=== PATIENT | male | born 1985 | race Caucasian/White ===

== ENCOUNTER 2019-07-02 06:47 | Emergency (ER) | payer SELFPAY ==
[~2019-07-02] VITALS: Ht 172.7 cm; Wt 109.1 kg
[2019-07-02 06:56] VITALS: BP 148/110; Ht 172.7 cm; Wt 109.1 kg
[2019-07-02] MEDS ORDERED: STERAPRED DS 1010 MG PO (07:40)
[2019-07-02] MEDS ORDERED: NAPROSYN500 MG PO (07:40)
[2019-07-02] MEDS ORDERED: LIBRIUM25 MG PO (07:40)
== END 2019-07-02 08:02 | disposition home or self-care (01) ==
LOC: D.ER 06:47
DX: S39.012A Strain of muscle, fascia and tendon of lower back, initial encounter (principal); F10.239 Alcohol dependence with withdrawal, unspecified; X50.9XXA Other and unspecified overexertion or strenuous movements or postures, initial encounter; Y93.9 Activity, unspecified; Y92.9 Unspecified place or not applicable; I10 Essential (primary) hypertension; Z72.0 Tobacco use

== ENCOUNTER 2019-09-29 00:11 | Emergency (ER) | payer MEDICAID ==
[~2019-09-29] VITALS: Ht 172.7 cm; Wt 109.1 kg
[~2019-09-29 00:11] MED LIST: LIBRIUM25 MG PO; NAPROSYN500 MG PO; STERAPRED DS 1010 MG PO
[2019-09-29 00:18] VITALS: Ht 172.7 cm; Wt 109.1 kg
[2019-09-29 00:31] LABS: BASOPHILS 0.1 % (0-2); EOSINOPHILS 0.1 % (0-7); HEMATOCRIT 49.9 % (42.0-54.0); HEMOGLOBIN 16.9 g/dL (13.5-17.5); IMMATURE GRANULOCYTES 0.4 % (0-5); LYMPHOCYTES 15.7 % (15-50); MCH 32.9 pg (26.0-34.0); MCHC 33.9 g/dL (31.0-37.0); MCV 97.3 fL (80.0-100.0); MEAN PLATELET VOLUME 13.7 fL (7.4-10.4); MONOCYTES 4.4 % (2-11); NEUTROPHILS 79.3 % (40-80); PLATELET COUNT 124 10x3/uL (130-400); RBC 5.13 10x6/uL (4.20-6.10); RDW 14.3 % (11.5-14.5); WBC 8.4 10x3/uL (4.8-10.8)
[2019-09-29 00:37] LABS: PROTIME 13.2 SECONDS (11.6-15.0)
[2019-09-29 00:49] LABS: CALC OSMOLALITY 276 mosm/kg (275-300); CALCIUM 8.4 mg/dL (8.5-10.1); CARBON DIOXIDE 23.9 mmol/L (21.0-32.0); CHLORIDE - SERUM 99 mmol/L (98-107); CREATININE - SERUM 0.9 mg/dL (0.6-1.3); GLUCOSE 153 mg/dL (74-106); POTASSIUM - SERUM 3.5 mmol/L (3.5-5.1); SODIUM 138 mmol/L (136-145); UREA NITROGEN 6 mg/dL (7-18); eGFR NON AFRICAN AMERICAN > 90 mL/min (90-120)
[2019-09-29 00:57] LABS: ALBUMIN 3.7 g/dL (3.4-5.0); ALKALINE PHOSPHATASE 109 U/L (30-120); ALT (SGPT) 143 U/L (10-68); BILIRUBIN - TOTAL 0.51 mg/dL (0.2-1.3); CKMB 3.1 U/L (0.0-3.6); CREATINE KINASE 263 UL (21-232); MAGNESIUM - SERUM 1.9 mg/dL (1.8-2.4); PRO BNP 11 pg/mL (0-125); PROTEIN - SERUM 8.2 g/dL (6.4-8.2); TROPONIN-I < 0.017 ng/mL (0.000-0.060)
[2019-09-29 01:00] LABS: UDS - AMPHET NEGATIVE QUAL (NEGATIVE); UDS - BARB NEGATIVE QUAL (NEGATIVE); UDS - BENZO POSITIVE QUAL (NEGATIVE); UDS - COCAINE NEGATIVE QUAL (NEGATIVE); UDS - OPIATE NEGATIVE QUAL (NEGATIVE); UDS - PCP NEGATIVE QUAL (NEGATIVE); UDS - THC NEGATIVE QUAL (NEGATIVE)
[2019-09-29] MEDS ORDERED: NORVASC10 MG PO (01:31)
[2019-09-29] MEDS ORDERED: LIBRIUM25 MG PO (01:31)
[2019-09-29 02:45] VITALS: BP 137/77
[2019-09-30] MEDS ORDERED: ATIVAN1 MG PO (05:03)
== END 2019-09-29 02:45 | disposition home or self-care (01) ==
LOC: D.ER 00:11
PROVIDERS: Surgery
DX: F10.129 Alcohol abuse with intoxication, unspecified (principal); Y90.8 Blood alcohol level of 240 mg/100 ml or more; F41.9 Anxiety disorder, unspecified; R74.0 Nonspecific elevation of levels of transaminase and lactic acid dehydrogenase [LDH]; I10 Essential (primary) hypertension; Z72.0 Tobacco use; R07.9 Chest pain, unspecified

== ENCOUNTER 2019-09-30 02:33 | Emergency (ER) | payer MEDICAID ==
[~2019-09-30] VITALS: Ht 172.7 cm; Wt 113.7 kg
[~2019-09-30 02:33] MED LIST changes: +NORVASC10 MG PO
[2019-09-30 02:52] VITALS: Ht 172.7 cm; Wt 113.7 kg
[2019-09-30 03:30] LABS: HEMATOCRIT 46.3 % (42.0-54.0); HEMOGLOBIN 15.8 g/dL (13.5-17.5); LYMPHOCYTES 22.4 % (15-50); MCH 33.1 pg (26.0-34.0); MCHC 34.1 g/dL (31.0-37.0); MCV 97.1 fL (80.0-100.0); RBC 4.77 10x6/uL (4.20-6.10); RDW 14.3 % (11.5-14.5)
[2019-09-30 03:31] LABS: PLATELET COUNT 81 10x3/uL (130-400); WBC 6.2 10x3/uL (4.8-10.8)
[2019-09-30 03:32] LABS: CALC OSMOLALITY 270 mosm/kg (275-300); CALCIUM 7.8 mg/dL (8.5-10.1); CARBON DIOXIDE 27.7 mmol/L (21.0-32.0); CHLORIDE - SERUM 97 mmol/L (98-107); CREATININE - SERUM 1.1 mg/dL (0.6-1.3); GLUCOSE 111 mg/dL (74-106); POTASSIUM - SERUM 3.3 mmol/L (3.5-5.1); SODIUM 136 mmol/L (136-145); UREA NITROGEN 6 mg/dL (7-18); eGFR NON AFRICAN AMERICAN 82 mL/min (90-120)
[2019-09-30 03:46] LABS: ALBUMIN 3.3 g/dL (3.4-5.0); ALKALINE PHOSPHATASE 107 U/L (30-120); ALT (SGPT) 206 U/L (10-68); BILIRUBIN - TOTAL 0.97 mg/dL (0.2-1.3); C-REACTIVE PROTEIN < 0.2 mg/dL (0.0-0.9); LIPASE 296 U/L (73-393); PROTEIN - SERUM 7.2 g/dL (6.4-8.2)
[2019-09-30 04:01] LABS: UDS - AMPHET NEGATIVE QUAL (NEGATIVE); UDS - BARB NEGATIVE QUAL (NEGATIVE); UDS - BENZO POSITIVE QUAL (NEGATIVE); UDS - COCAINE NEGATIVE QUAL (NEGATIVE); UDS - OPIATE NEGATIVE QUAL (NEGATIVE); UDS - PCP NEGATIVE QUAL (NEGATIVE); UDS - THC NEGATIVE QUAL (NEGATIVE)
[2019-09-30 04:25] LABS: BILIRUBIN NEGATIVE (NEGATIVE); GLUCOSE NEGATIVE (NEGATIVE); KETONE NEGATIVE (NEGATIVE); NITRITE NEGATIVE (NEGATIVE); SPECIFIC GRAVITY 1.015 (1.005-1.020); UROBILINOGEN NORMAL (NORMAL)
[2019-09-30 04:27] LABS: BACTERIA NONE SEEN /hpf (NEGATIVE); EPITHELIAL CELLS NSEEN /hpf (0-5); RED CELLS - URINE NONE SEEN /hpf (0-5); WHITE CELLS - URINE 0-5 /hpf (NEGATIVE)
[2019-09-30] MEDS ORDERED: ATIVAN1 MG PO (05:03)
[2019-09-30 05:35] VITALS: BP 135/88
== END 2019-09-30 05:36 | disposition home or self-care (01) ==
LOC: D.ER 02:33
PROVIDERS: Family Medicine
DX: R07.89 Other chest pain (principal); K70.0 Alcoholic fatty liver; I10 Essential (primary) hypertension; D69.6 Thrombocytopenia, unspecified; R05 Cough; R06.02 Shortness of breath